=== PATIENT | female | born 1985 | race Two or more races ===

== ENCOUNTER 2025-07-04 09:24 | Outpatient (CLI) | payer OTHER | END 2025-07-04 09:32 | disposition home or self-care (01) | LOC: SONOGRAMA 09:24 | DX: N84.0 Polyp of corpus uteri (principal) ==

== ENCOUNTER 2025-08-17 13:00 | Day surgery (SDC) | payer OTHER ==
[2025-08-11 10:17] LABS: BASO % 0.5 % (0.1-1.2); EOS # 0.12 (0.04-0.54); EOS % 1.4 % (0.7-7.0); LYMPH # 2.80 (1.18-3.74); LYMPH % 33.7 % (19.3-53.1); MEAN PLATELET VOLUME 9.10 fl (9.4-12.4); MONO # 0.64 (0.24-0.82); MONO % 7.7 % (4.7-12.5); NEUT # 4.69 (1.56-6.13); NEUT % 56.5 % (34.0-71.1); RED CELL DISTRIBUTION WIDTH 14.3 % (11.6-14.4)
[2025-08-11 10:32] LABS: URINE APPEARANCE Clear; URINE BILIRRUBIN Negative (NEGATIVE); URINE BLOOD Negative; URINE COLOR Yellow; URINE GLUCOSE Negative (NEGATIVE); URINE KETONE Negative (NEGATIVE); URINE LEUKOCYTE Negative; URINE NITRATE Negative; URINE PROTEIN Negative (NEGATIVE); URINE UROBILINOGEN 0.2 E.U./dl
[2025-08-11 10:33] LABS: URINE BACTERIA 43.1 uL (0.0-1933); URINE EPITHELIAL CELLS 9.3 uL (0.0-38.8); URINE RBC 9.9 uL (0.0-20.8)
[2025-08-11 10:48] LABS: INR 0.95
[2025-08-11 11:10] LABS: ALT/SGPT 291.0 U/L (12-78); AST/SGOT 133.0 U/L (15-37); BILIRUBIN TOTAL 0.4 mg/dL (0.3-1.2); BUN CREA RATIO 22.0 (7.0-25.0); CREATININE SERUM 0.74 mg/dL (0.55-1.02); GFR 87.83; GLOBULINA 3.4 G/DL (2.4-3.5); GLUCOSE FASTING 93.0 mg/dL (65-100); OSMOLALITY SERUM 280.0 MOSM/KG (275-295)
[2025-08-11 11:26] LABS: URINE CAST 0.00 uL (0.0-1.40); URINE WBC 1.2 uL (0.0-23.2)
[2025-08-17] MEDS ORDERED: POVIDONE-IODINE 118 ML BOTT TOP ONE (15:42)
[2025-08-17] MEDS ORDERED: RINGERS SOLUTION,LACTATED 1,000 ML IV SCH (17:30)
[2025-08-17] MEDS ORDERED: KETOROLAC TROMETHAMINE 30 MG VIAL IV ONE (17:30)
== END 2025-08-17 23:05 | disposition home or self-care (01) ==
LOC: CIR.AMB 13:00
PROVIDERS: ATTEND General Practice
DX: N84.0 Polyp of corpus uteri (principal); N97.9 Female infertility, unspecified